=== PATIENT | female | born 1980 | race Caucasian/White ===

== ENCOUNTER 2017-09-22 08:08 | Emergency (ER) | payer OTHER ==
[~2017-09-22] VITALS: Ht 167.6 cm; Wt 178.3 kg
[~2017-09-22 08:08] MED LIST: ACETAMINOPHEN-1 EAC1 PO; ALBUTEROL2.5 MG/31 INH; ALDACTONE25 MG PO; AZITHROMYCIN 2250 MG PO; B12INJ; CARAFATE 1 GM TA1 G1 PO; COZAAR 50 MG TA50 M2 PO; CYMBALTA30 MG; CYMBALTA30 MG PO; CYMBALTA60 MG PO; ERGOCALCIF50000 UNIT PO; JARDIANCE10 MG PO; LEVEMIR SUBQ; LEVOTHYROXINE0.05 MG PO; LOVENOX40 MG/0.4 SQ; METFORMIN HCL500 MG PO; MOBIC7.5 MG; NEXIUM 24HR20 M1 PO; NEXIUM40 M2 PO; NORCO 5-325 TA1 EACH PO; OXYCODONE HCL 55 MG PO; PREDNISONE 20 M20 M1 PO; PREDNISONE50 MG PO; PRILOSEC 20 MG20 MG PO; PRILOSEC40 MG PO; SEROQUEL 50 MG50 MG PO; SEROQUEL XR 30300 M1 PO; SYNTHROID125 MC1 PO; TRAMADOL 50 MG50 MG PO; TRULICITY1.5 MG/0.5; VICTOZA0.6 MG/0.1 SUBQ; VIT C; VIT D; VITAMIN D 5050000 I1; ZANTAC 150MG T150 MG PO; ZOFRAN ODT4 MG PO
[2017-09-22 08:15] VITALS: BP 139/91
[2017-09-22 08:24] LABS: URINE BILIRUBIN NEGATIVE (Negative); URINE BLOOD NEGATIVE (Negative); URINE CLARITY CLEAR; URINE COLOR YELLOW; URINE GLUCOSE-RANDOM 3+ (Negative); URINE KETONES NEGATIVE (Negative); URINE LEUKOCYTES-REFLEX NEGATIVE (Negative); URINE NITRITE-REFLEX NEGATIVE (Negative); URINE PROTEIN NEGATIVE (Negative); URINE UROBILINOGEN 0.2 E.U./dl (0.2-1.0)
[2017-09-22] MEDS ORDERED: ULTRAM 50MG TAB50 MG PO (08:30)
[2017-09-22] MEDS ORDERED: FLEXERIL PO (08:30)
== END 2017-09-22 08:35 | disposition home or self-care (01) ==
LOC: M.ERS 08:08
PROVIDERS: Family Medicine
DX: M54.6 Pain in thoracic spine (principal); E11.9 Type 2 diabetes mellitus without complications; F31.9 Bipolar disorder, unspecified; E89.0 Postprocedural hypothyroidism; Z98.890 Other specified postprocedural states

== ENCOUNTER 2018-07-11 16:11 | Emergency (ER) | payer OTHER ==
[~2018-07-11] VITALS: Ht 165.1 cm; Wt 177.4 kg
[~2018-07-11 16:11] MED LIST changes: +FLEXERIL PO; +ULTRAM 50MG TAB50 MG PO
[2018-07-11] MEDS ORDERED: HUMALOG100 UNIT/1 SUBQ (16:25)
[2018-07-11] MEDS ORDERED: CRANBERRY WITH VIT C (16:26)
[2018-07-11] MEDS ORDERED: SELENIMIN200 MCG PO (16:26)
[2018-07-11] MEDS ORDERED: BIOTIN1000 MCG PO (16:26)
[2018-07-11] MEDS ORDERED: MAGNESIUM CITR100 GM (16:27)
[2018-07-11] MEDS ORDERED: CENTRUM SILVER1 EAC4 PO (16:27)
[2018-07-11 17:04] LABS: INFLUENZA A ANTIGEN None Detected (None Detect); INFLUENZA B ANTIGEN None Detected (None Detect)
[2018-07-11] MEDS ORDERED: TESSALON PERLE100 MG PO (17:16)
[2018-07-11 17:36] VITALS: BP 150/98
== END 2018-07-11 17:36 | disposition home or self-care (01) ==
LOC: M.ERS 16:11
PROVIDERS: Nurse Practitioner Psychiatric/Mental Health
DX: J06.9 Acute upper respiratory infection, unspecified (principal); E11.9 Type 2 diabetes mellitus without complications; F31.9 Bipolar disorder, unspecified; E03.9 Hypothyroidism, unspecified; Z98.890 Other specified postprocedural states; Z79.4 Long term (current) use of insulin

== ENCOUNTER 2019-03-13 15:14 | Emergency (ER) | payer OTHER ==
[~2019-03-13] VITALS: Ht 165.1 cm; Wt 173.7 kg
[~2019-03-13 15:14] MED LIST changes: +BIOTIN1000 MCG PO; +CENTRUM SILVER1 EAC4 PO; +CRANBERRY WITH VIT C; +HUMALOG100 UNIT/1 SUBQ; +MAGNESIUM CITR100 GM; +SELENIMIN200 MCG PO; +TESSALON PERLE100 MG PO
[2019-03-13] MEDS ORDERED: MOBIC15 MG PO (15:26)
[2019-03-13] MEDS ORDERED: TRAZODONE 150150 M1 PO (15:26)
[2019-03-13] MEDS ORDERED: [UNRECOGNIZED DRUG - OTHER] (15:27)
[2019-03-13 16:12] VITALS: BP 156/93
== END 2019-03-13 16:12 | disposition home or self-care (01) ==
LOC: M.ERS 15:14
DX: M25.531 Pain in right wrist (principal); E11.9 Type 2 diabetes mellitus without complications; E03.9 Hypothyroidism, unspecified; E28.2 Polycystic ovarian syndrome; F31.9 Bipolar disorder, unspecified; Z90.49 Acquired absence of other specified parts of digestive tract; Z90.89 Acquired absence of other organs

== ENCOUNTER 2020-04-14 08:28 | Emergency (ER) | payer OTHER ==
[~2020-04-14] VITALS: Ht 162.6 cm; Wt 169.2 kg
[~2020-04-14 08:28] MED LIST changes: +MOBIC15 MG PO; +TRAZODONE 150150 M1 PO; +[UNRECOGNIZED DRUG - OTHER]
[2020-04-14] MEDS ORDERED: VRAYLAR1.5 MG PO (08:43)
[2020-04-14 08:48] LABS: URINE BILIRUBIN NEGATIVE (Negative); URINE BLOOD NEGATIVE (Negative); URINE CLARITY CLEAR; URINE COLOR YELLOW; URINE GLUCOSE-RANDOM 3+ (Negative); URINE KETONES TRACE (Negative); URINE LEUKOCYTES-REFLEX NEGATIVE (Negative); URINE NITRITE-REFLEX NEGATIVE (Negative); URINE PROTEIN NEGATIVE (Negative); URINE UROBILINOGEN 0.2 E.U./dl (0.2-1.0)
[2020-04-14 09:14] LABS: ABSOLUTE BASOPHILS 0.1 thou/uL (0.0-0.2); ABSOLUTE EOSINOPHILS 0.3 thou/uL (0.0-0.7); ABSOLUTE LYMPHOCYTES 2.2 thou/uL (0.8-5.3); ABSOLUTE MONOCYTES 0.5 thou/uL (0.0-1.2); ABSOLUTE NEUTROPHILS 5.7 thou/uL (1.6-8.1); EOSINOPHILS 3.9 %; HEMOGLOBIN 14.1 gm/dL (12.0-15.0); LYMPHOCYTES 25.3 %; MCH 27.7 pg (26.0-34.0); MCHC 32.9 g/dL (28.0-37.0); MCV 84.3 fL (80.0-100.0); MONOCYTES 5.3 %; MPV 8.6 fl. (7.2-11.1); NUCLEATED RBCS 0 /100WBC; PLATELET COUNT* 260 thou/uL (150-400); POLYS 64.5 %; RDW-CV 15.6 % (10.5-14.5); WBC 8.8 thou/uL (4.0-11.0)
[2020-04-14 09:19] LABS: CALCIUM 8.8 mg/dL (8.5-10.1); CREATININE 0.8 mg/dL (0.6-1.3)
[2020-04-14 09:29] LABS: ALBUMIN 3.4 g/dL (3.4-5.0); TOTAL BILIRUBIN 0.3 mg/dL (<0.1-1.0); TOTAL PROTEIN 6.9 g/dL (6.4-8.2)
[2020-04-14] MEDS ORDERED: ZOFRAN ODT4 MG DISSOLVE (09:33)
[2020-04-14 09:35] VITALS: BP 131/91
== END 2020-04-14 09:35 | disposition home or self-care (01) ==
LOC: M.ERS 08:28
PROVIDERS: Emergency Medicine Emergency Medical Services
DX: R19.7 Diarrhea, unspecified (principal); Z20.828 Contact with and (suspected) exposure to other viral communicable diseases; E11.9 Type 2 diabetes mellitus without complications; E03.9 Hypothyroidism, unspecified; Z90.89 Acquired absence of other organs; Z79.4 Long term (current) use of insulin

== ENCOUNTER 2021-02-20 07:40 | Emergency (ER) | payer OTHER ==
[~2021-02-20] VITALS: Ht 165.1 cm; Wt 173.7 kg
[~2021-02-20 07:40] MED LIST changes: +VRAYLAR1.5 MG PO; +ZOFRAN ODT4 MG DISSOLVE
[2021-02-20 09:00] VITALS: BP 134/72
== END 2021-02-20 09:01 | disposition home or self-care (01) ==
LOC: M.ERS 07:40
DX: J02.8 Acute pharyngitis due to other specified organisms (principal); B97.89 Other viral agents as the cause of diseases classified elsewhere; Z20.822 Contact with and (suspected) exposure to COVID-19; E11.9 Type 2 diabetes mellitus without complications; E03.9 Hypothyroidism, unspecified; E89.0 Postprocedural hypothyroidism; Z90.89 Acquired absence of other organs; Z79.4 Long term (current) use of insulin